=== PATIENT | female | born 1985 | race Caucasian/White ===

== ENCOUNTER 2020-01-15 19:02 | Emergency (ER) | payer OTHER ==
[~2020-01-15] VITALS: Ht 154.9 cm; Wt 60.2 kg
[2020-01-15 19:45] LABS: BASO # 0.1 10^3/uL (0.0-0.2); BASO % 0.7 % (0.0-1.0); EOS % 0.3 % (0.0-3.0); HEMATOCRIT 38.3 % (36.0-47.0); HEMOGLOBIN 12.8 g/dl (12.0-15.5); LYMPH # 2.9 10^3/uL (1.5-5.0); LYMPH % 31.2 % (24.0-44.0); MEAN CORPUSCULAR HEMOGLOBIN 29.3 pg (27.0-33.0); MEAN CORPUSCULAR HGB CONC 33.4 g/dl (32.0-36.5); MEAN CORPUSCULAR VOLUME 87.6 fl (80.0-96.0); MONO # 0.6 10^3/uL (0.0-0.8); MONO % 6.1 % (0.0-5.0); NEUTROPHILS # 5.7 10^3/uL (1.5-8.5); NEUTROPHILS % 61.5 % (36.0-66.0); PLATELET COUNT, AUTOMATED 301 10^3/uL (150-450); RED BLOOD COUNT 4.37 10^6/uL (4.00-5.40); WHITE BLOOD COUNT 9.2 10^3/uL (4.0-10.0)
[2020-01-15 20:12] LABS: BLOOD UREA NITROGEN 11 MG/DL (7-18); CALCIUM LEVEL 8.7 MG/DL (8.5-10.1); CARBON DIOXIDE LEVEL 25 MEQ/L (21-32); CHLORIDE LEVEL 106 MEQ/L (98-107); CREATININE FOR GFR 0.89 MG/DL (0.55-1.30); GLOMERULAR FILTRATION RATE > 60.0 (>60); GLUCOSE, FASTING 104 MG/DL (70-100); HCG, SERUM QUANTITATIVE 7 MIU/ML; POTASSIUM SERUM 3.4 MEQ/L (3.5-5.1); SODIUM LEVEL 139 MEQ/L (136-145)
--- NOTE | 2020-01-15 20:44 | REPVR ---
PROCEDURE INFORMATION: Exam: US First Trimester, Transabdominal Exam date and time: 01/15/2020 8:02 PM Age: 34 years old Clinical indication: Lmp or gestational age (in weeks): 12/03/2019; Other: Vaginal bleeding; ; Additional info: Vag bleeding, positive home preg test TECHNIQUE: Imaging protocol: Real-time transabdominal obstetrical ultrasound of the maternal pelvis and a first trimester , less than 14 weeks 0 days, with image documentation. COMPARISON: No relevant prior studies available. FINDINGS: Gestation: There is no intrauterine gestational sac. The gestational sac is generally seen at 5-6 weeks gestation. The patient has had vaginal bleeding and it is possible that this is a spontaneous . In this situation microscopic ectopic could not be absolutely excluded and recommend correlation with hCG levels and ankle follow-up. Uterus: The uterus measures 8.9 cm in length by 4.1 cm in thickness by 6.1 cm in transverse dimension. The endometrium is uniformly echogenic and measuring only 7 mm. Cervix: Unremarkable. Right adnexa: The right ovary measures 3 cm in length by 2.7 cm in thickness. There is vascular flow of the right ovary with no evidence of torsion. There is a 1.6 cm hemorrhagic cyst right ovary which may represent a corpus luteum. Left adnexa: Left ovary measures 2.2 cm in length by 1.8 cm in thickness and there is vascular flow of the left ovary with no evidence of torsion. Intraperitoneal space: There is no evidence of free fluid in the pelvis. Urinary bladder: There is only a very small amount of urine in the urinary bladder and therefore the urinary bladder cannot be evaluated. IMPRESSION: No evidence of intrauterine gestational sac. It is possible that this represents a spontaneous . Microscopic ectopic could not be excluded and recommend correlation with hCG levels and follow-up examinations. Electronically signed by: Mir Boss On 01/15/2020 20:44:32 PM
[2020-01-15] MEDS ORDERED: RHOGAM 300 MCG (1500 IU) INJ (J2790) IM ONE (21:15)
[2020-01-15] MEDS ORDERED: POTASSIUM CHLORIDE 10 MEQ SR TABLET PO ONE (21:45)
[2020-01-15 22:16] VITALS: BP 152/87
== END 2020-01-15 22:18 | disposition home or self-care (01) ==
LOC: M ED 19:02
DX: O03.9 Complete or unspecified spontaneous abortion without complication (principal); O02.1 Missed abortion; Z98.890 Other specified postprocedural states
CPT/HCPCS: 36415; 76801; 80048; 81001; 84702; 85025; 86901; 93976; 96372; 99283; J2790

== ENCOUNTER → 2020-01-17 | Outpatient (CLI) | payer OTHER | LOC: M LAB 17:04 | PROVIDERS: ATTEND Physician Assistant | DX: Z32.00 Encounter for pregnancy test, result unknown (principal) ==

== ENCOUNTER 2020-10-07 22:14 | Outpatient (CLI) | payer OTHER ==
[~2020-10-07] VITALS: Ht 154.9 cm; Wt 68.8 kg
[2020-10-07] MEDS ORDERED: HOME MED LIST COMPLETE! XX SCH (22:45)
[2020-10-07 22:46] VITALS: BP 134/81
[2020-10-07] MEDS ORDERED: PRENTAB9 PO (22:46)
[2020-10-08 00:39] VITALS: BP 108/55
[2020-10-08 00:50] LABS: HEMATOCRIT 37.6 % (36.0-47.0); MEAN CORPUSCULAR HEMOGLOBIN 31.8 pg (27.0-33.0); MEAN CORPUSCULAR HGB CONC 34.6 g/dl (32.0-36.5); MEAN CORPUSCULAR VOLUME 91.9 fl (80.0-96.0); PLATELET COUNT, AUTOMATED 168 10^3/uL (150-450); RED BLOOD COUNT 4.09 10^6/uL (4.00-5.40); WHITE BLOOD COUNT 11.2 10^3/uL (4.0-10.0)
[2020-10-08] MEDS ORDERED: ACETAMINOPHEN 500 MG TAB PO ONE (01:00)
[2020-10-08] MEDS ORDERED: ONDANSETRON 4MG/2ML VIAL IV PRN (01:00)
[2020-10-08 02:26] VITALS: BP 111/55
--- NOTE | 2020-10-08 02:31 | IPNPDOC ---
Obstetrical Progress Note Date of Service Oct 08, 2020 Subjective 34 yo @ 36+6 by 7wk us who presents with complaints of not feeling well overall and nausea and hip pain. she reports she feels hot at home and took a temp that was 100.2. she notes that she has not eating anything all day because she had not felt good. she denies any urinary symptoms. denies any vaginal bleeding or decreased movements. she is having some occasional contrac tions that are not painful. I obtained UA, CBC AMD COVID TEST Objective Vital Signs Date Time Temp Pulse Resp B/P (MAP) Pulse Ox O2 Delivery O2 Flow Rate FiO2 10/08/20 00:40 100.3 10/08/20 00:39 116 108/55 (72) 10/07/20 22:46 20 Room Air Assessment Heart Rate (FHR): 140 Variability: Moderate Accelerations: Positive Decelerations: None Heart Rate Tracing: Category I Tocometer Contractions: Yes Sterile Vaginal Examination Dilation: 3 cm Effacement (%): 70% Station: -2 Cervical Consistency: Medium Cervical Position: Middle Postion/Presentation: Cephalic presentation Assessment and Plan Status: Reassuring Group B Streptococcus: Negative Additional Comments 34 yo @ 36+6 by 7wk us who presents with complaints of not feeling well overall and nausea and hip pain. Labs obtained were wnl. benign exam with no CVA tenderness, fundal tenderness or suprapubic tenderness fetus initially tachy, but resolved with IV hydration Patient was treated with zofran and tylenol which helped, she was given crackers and juice which she was able to keep down. given strict return precautions f/u as previously scheduled. GENA MAI MD Oct 08, 2020 02:31
[2020-10-09] MEDS ORDERED: FERR325T81 PO (23:24)
[2020-10-09] MEDS ORDERED: VITA100T59 PO (23:24)
[2020-10-09] MEDS ORDERED: TUMS500C PO (23:24)
== END 2020-10-08 02:47 | disposition home or self-care (01) ==
LOC: M LDO 22:14
PROVIDERS: ATTEND Obstetrics & Gynecology
DX: O26.893 Other specified pregnancy related conditions, third trimester (principal); Z3A.36 36 weeks gestation of pregnancy; R11.0 Nausea; M25.552 Pain in left hip; M25.551 Pain in right hip; R10.9 Unspecified abdominal pain
CPT/HCPCS: 36415; 59025; 81001; 85027; 87086; 96365; 96366; G0378; G0463; J2405; U0002

== ENCOUNTER 2020-10-09 22:15 | Outpatient (CLI) | payer OTHER ==
[~2020-10-09] VITALS: Ht 154.9 cm; Wt 69.6 kg
[~2020-10-09 22:15] MED LIST: PRENTAB9 PO
[2020-10-09 22:37] VITALS: BP 120/72
[2020-10-09] MEDS ORDERED: ACETAMINOPHEN 500 MG TAB PO STA (22:43)
[2020-10-09] MEDS ORDERED: LR 1,000 ML IV ONE (23:00)
[2020-10-09 23:03] LABS: BASO % 0.3 % (0.0-1.0); EOS % 0.3 % (0.0-3.0); HEMATOCRIT 34.9 % (36.0-47.0); HEMOGLOBIN 12.2 g/dl (12.0-15.5); LYMPH # 1.5 10^3/uL (1.5-5.0); LYMPH % 14.9 % (24.0-44.0); MEAN CORPUSCULAR HEMOGLOBIN 31.4 pg (27.0-33.0); MEAN CORPUSCULAR VOLUME 89.9 fl (80.0-96.0); MONO # 0.7 10^3/uL (0.0-0.8); MONO % 6.8 % (2.0-8.0); NEUTROPHILS # 7.5 10^3/uL (1.5-8.5); NEUTROPHILS % 76.6 % (36.0-66.0); PLATELET COUNT, AUTOMATED 162 10^3/uL (150-450); RED BLOOD COUNT 3.88 10^6/uL (4.00-5.40); WHITE BLOOD COUNT 9.8 10^3/uL (4.0-10.0)
[2020-10-09 23:20] LABS: ALBUMIN 2.6 GM/DL (3.2-5.2); ALT/SGPT 30 U/L (12-78); BILIRUBIN,TOTAL 0.9 MG/DL (0.2-1.0); BLOOD UREA NITROGEN 6 MG/DL (7-18); CALCIUM LEVEL 8.1 MG/DL (8.5-10.1); CARBON DIOXIDE LEVEL 21 MEQ/L (21-32); CHLORIDE LEVEL 105 MEQ/L (98-107); CREATININE FOR GFR 0.61 MG/DL (0.55-1.30); GLOMERULAR FILTRATION RATE > 60.0 (>60); GLUCOSE, FASTING 111 MG/DL (70-100); POTASSIUM SERUM 3.7 MEQ/L (3.5-5.1); SODIUM LEVEL 134 MEQ/L (136-145); TOTAL PROTEIN 6.1 GM/DL (6.4-8.2)
[2020-10-09] MEDS ORDERED: FERR325T81 PO (23:24)
[2020-10-09] MEDS ORDERED: TUMS500C PO (23:24)
[2020-10-09] MEDS ORDERED: VITA100T59 PO (23:24)
[2020-10-10 00:14] LABS: APPEARANCE, URINE HAZY (CLEAR); BACTERIA, URINE AUTO NEGATIVE (NEGATIVE); BILIRUBIN, URINE AUTO NEGATIVE (NEGATIVE); BLOOD, URINE BLOOD NEGATIVE (NEGATIVE); CALCIUM OXALATE CRYSTALS SMALL; COLOR, URINE YELLOW (YELLOW); GLUCOSE, URINE (UA) AUTO NEGATIVE (NEGATIVE); KETONE, URINE AUTO 2+ mg/dL (NEGATIVE); LEUKOCYTE ESTERASE, URINE AUTO 1+ (NEGATIVE); MUCUS, URINE SMALL (NEGATIVE); NITRITE, URINE AUTO NEGATIVE (NEGATIVE); PROTEIN, URINE AUTO 1+ mg/dL (NEGATIVE); RBC, URINE AUTO 3 /HPF (0-3); SPECIFIC GRAVITY URINE AUTO 1.011 (1.002-1.035); SQUAMOUS EPITHELIAL CELL UR AU 10 /HPF (0-6); WBC, URINE AUTO 3 /HPF (0-3)
--- NOTE | 2020-10-10 01:08 | IPNPDOC ---
Obstetrical Progress Note Date of Service Oct 10, 2020 Subjective 35yo at 37w1d by 7w4d US with EDD9/6 presents to triage with symptoms of fevers and body aches. Pt presented with similar symptoms on Friday and was discharged home after prolonged monitoring and IV fluids. She states her symptoms are unchanged, and maybe slightly better than Friday, however she spiked another fever of 101.3 at home and was concerned. She states she has also had worsening reflux and several episodes of emesis since her symptoms began, but that she was able to keep down full meals today. Denies sore throat, ear pain, congestion, cough/wheeze, diarrhea or any additional cold/flu symptoms. Denies OB complaint. States she has occassional contractions but they are nonpainful. Denies LOF, VB or discharge. +GFM . Objective Vital Signs Date Time Temp Pulse Resp B/P (MAP) Pulse Ox O2 Delivery O2 Flow Rate FiO2 10/09/20 23:34 113 10/09/20 23:31 100.4 18 10/09/20 22:37 120/72 (88) 10/09/20 23:58: Urine Color YELLOW, Urine Appearance HAZY, Urine pH 6.0, Urine Specific [place] 1.011, Urine Protein 1+H, Urine Glucose (Auto)(UA) NEGATIVE, Urine Ketones (Auto) 2+H, Urine Blood NEGATIVE, Urine Nitrite NEGATIVE, Urine Bilirubin NEGATIVE, Urine Urobilinogen 2.0H, Urine Leukocyte Esterase (Auto) 1+H, Urine WBC (Auto) 3, Urine RBC (Auto) 3, Urine Hyaline Casts (Auto) 0, Urine Bacteria (Auto) NEGATIVE, Urine Squamous Epithelial Cells 10, Urine Calcium Oxalate Cryst (Auto) SMALL, Urine Mucus (Auto) SMALL, Urine Sperm (Auto) Microbiology 10/09/20 Respiratory Virus Panel (PCR) ([facility]) - Final, Complete Laboratory Tests 10/09/20 22:47 10/09/20 22:49 Assessment Heart Rate (FHR): 170 (improved to 150's after IV fluids) Variability: Moderate Accelerations: Positive Decelerations: None Heart Rate Tracing: Category II Tocometer Contractions: Yes Frequency: irregular Sterile Vaginal Examination Postion/Presentation: Cephalic presentation (by US) Assessment and Plan Additional Comments Pt evaluated with CBC, CMP, UA (culture pending) and respiratory panel. WBC is slightly improved from Sat. CMP is significant for mildly elevated ALT which may be as a result of her N/V. COVID again negative, as well as influenza and the remainder of the respiratory panel. Pt given tylenol and IV fluids with resolution of fever and maternal/ tachycardia. Repeat temp normal at 97.9. Bedside US also performed, subjectively normal fluid noted and in cephalic presentation. Reviewed findings with patient. Will plan for D/C home at this time with strict return precautions. Pt scheduled for follow up in clinic on Friday this week. Recommend repeating LFTs to trend mildly elevated level. MIKAYLA PADILLA M.D. Oct 10, 2020 00:54
== END 2020-10-10 01:00 | disposition home or self-care (01) ==
LOC: M LDO 22:15
PROVIDERS: ATTEND Obstetrics & Gynecology
DX: O26.893 Other specified pregnancy related conditions, third trimester (principal); Z3A.37 37 weeks gestation of pregnancy; R50.9 Fever, unspecified; Z20.822 Contact with and (suspected) exposure to COVID-19
CPT/HCPCS: 36415; 59025; 76815; 80053; 81001; 85025; 87086; 87798; G0378; G0463

== ENCOUNTER 2020-10-24 05:22 | Inpatient (IN) | payer OTHER ==
[~2020-10-24] VITALS: Ht 154.9 cm; Wt 68.6 kg
[2020-10-24] VITALS (14 sets, daily range): BP systolic 107–133; BP diastolic 53–78
[~2020-10-24 05:22] MED LIST changes: +FERR325T81 PO; +TUMS500C PO; +VITA100T59 PO
[2020-10-24] MEDS ORDERED: BICITRA 30ML SOLN UDC PO ONE (05:30)
[2020-10-24] MEDS ORDERED: LR 1,000 ML IV ONE (05:30)
[2020-10-24] MEDS ORDERED: ACETAMINOPHEN 650 MG SUPP PR ONE (05:30)
[2020-10-24] MEDS ORDERED: AZITHROMYCIN INJ 500 MG, VIAL MATE ADAPTER 1 EACH in NS 250 ML IV ONE (05:30)
[2020-10-24] MEDS ORDERED: ceFAZolin SOD 2 GM in IV 1 EA IV ONE (05:50)
[2020-10-24] MEDS ORDERED: HOME MED LIST COMPLETE! XX SCH (05:50)
[2020-10-24] MEDS ORDERED: BUPIVACAINE HCL 0.25% 10ML VIAL SC ONE (06:00)
[2020-10-24 06:30] LABS: HEMATOCRIT 37.5 % (36.0-47.0); MEAN CORPUSCULAR HEMOGLOBIN 31.5 pg (27.0-33.0); MEAN CORPUSCULAR HGB CONC 34.7 g/dl (32.0-36.5); MEAN CORPUSCULAR VOLUME 90.8 fl (80.0-96.0); PLATELET COUNT, AUTOMATED 265 10^3/uL (150-450); RED BLOOD COUNT 4.13 10^6/uL (4.00-5.40); WHITE BLOOD COUNT 11.4 10^3/uL (4.0-10.0)
[2020-10-24] MEDS ORDERED: LR 1,000 ML IV SCH ×3 (06:30→09:30)
[2020-10-24] MEDS ORDERED: MORPHINE PRES-FREE INJ 10 MG/10 ML VIAL (J2274) As Ordered ONE (07:15)
[2020-10-24] MEDS ORDERED: dexameTHASONE 4 MG/ML 1ML VIAL (J1100 PER 1MG) As Ordered ONE (07:17)
[2020-10-24] MEDS ORDERED: ONDANSETRON 4MG/2ML VIAL As Ordered ONE (07:17)
[2020-10-24] MEDS ORDERED: NALBUPHINE HCL 10 MG/ML AMP (J2300) IV PRN (07:48)
[2020-10-24] MEDS ORDERED: diphenhydrAMINE 50MG/ML VIAL (J1200) IV PRN (07:48)
[2020-10-24] MEDS ORDERED: NALOXONE INJ 0.4MG/1ML VIAL (J2310 PER 1MG) IV PRN ×2 (07:48)
[2020-10-24] MEDS ORDERED: METOCLOPRAMIDE INJ 10MG/2ML VIAL (J2765 PER 1) IV PRN ×2 (07:48→09:30)
[2020-10-24] MEDS ORDERED: ONDANSETRON 4MG/2ML VIAL IV PRN ×2 (07:48→09:30)
[2020-10-24] MEDS ORDERED: PHENYLephrine 500MCG 5ML (100MCG/ML) SYRINGE As Ordered ONE (08:19)
[2020-10-24] MEDS ORDERED: KETOROLAC 60MG 2ML VIAL As Ordered ONE (08:19)
[2020-10-24] MEDS ORDERED: ePHEDrine SULFATE 25 MG/5 ML(5MG/ML) SYRINGE As Ordered ONE (08:19)
[2020-10-24] MEDS ORDERED: fentaNYL 100 MCG/2 ML INJECTION (J3010) As Ordered ONE (08:32)
[2020-10-24 08:33] LABS: CORD GAS ABE V -0.8; CORD GAS HCO3 V 23.8 MEQ/L; CORD GAS O2 SAT V 54.8 %; CORD GAS PCO2 V 39.2 mmHg; CORD GAS PH V 7.401 UNITS; CORD GAS SBC V 22.8 MEQ/L
[2020-10-24 08:35] LABS: CORD GAS ABE A -4.8; CORD GAS O2 SAT A 74.5 %; CORD GAS PCO2 A 41.5 mmHg; CORD GAS PH A 7.322 UNITS; CORD GAS PO2 A 36.7 mmHg; CORD GAS TCO2 A 22.3 MEQ/L
[2020-10-24] MEDS ORDERED: MEASLES,MUMPS,RUBELLA VACCINE INJ (MMR-II) (90707) SC SCH (09:10)
[2020-10-24] MEDS ORDERED: ACETAMINOPHEN TAB 650MG DOSE (2X325MG) PO PRN (09:10)
[2020-10-24] MEDS ORDERED: OXYTOCIN DRIP 30 UNITS in IV 1 EA IV ONE (09:10)
[2020-10-24] MEDS ORDERED: PERCOCET 5MG/325MG TAB PO PRN ×2 (09:10→09:30)
[2020-10-24] MEDS ORDERED: METHYLERGONOVINE MALEATE 0.2 MG TAB PO PRN (09:10)
[2020-10-24] MEDS ORDERED: ACETAMINOPHEN 500 MG TAB PO PRN (09:10)
[2020-10-24] MEDS ORDERED: ANUSOL HC CREAM 30GM TOP PRN (09:10)
[2020-10-24] MEDS ORDERED: DOCUSATE SODIUM 100MG CAPSULE PO PRN (09:10)
[2020-10-24] MEDS ORDERED: RHOGAM 300 MCG (1500 IU) INJ (J2790) IM SCH (09:10)
[2020-10-24] MEDS ORDERED: SIMETHICONE 80MG CHEW TAB PO PRN (09:10)
[2020-10-24] MEDS ORDERED: MOM 30ML SUSPENSION UDC PO PRN (09:10)
[2020-10-24] MEDS ORDERED: OXYTOCIN 30 UNITS IN 0.9% NaCl 500ML IV BAG (J2590) As Ordered ONE (09:21)
[2020-10-24] MEDS ORDERED: fentaNYL 100 MCG/2 ML INJECTION (J3010) IV PRN (09:30)
--- NOTE | 2020-10-24 10:55 | RO ---
OPERATIVE NOTE DATE OF OPERATION: 10/24/2020 PREOPERATIVE DIAGNOSIS: Repeat . POSTOPERATIVE DIAGNOSIS: Repeat . PROCEDURE: repeat SURGEON: Aidan Sy MD. DATA PROCESSING CONSULTANT: Dr. Schulte for assistance in retraction, extraction, and visualization without which the procedure could not be completed. ANESTHESIA: Spinal plus local anesthetic for intraperitoneal procedures. ESTIMATED BLOOD LOSS: 400 mL. DESCRIPTION OF PROCEDURE: After adequate time out, prepped and draped in supine position. Eastman catheter in the bladder draining clear urine. Acetaminophen suppository 1300 mg per rectum. Antibiotics appropriately in place. Sequentials in place. Pfannenstiel incision was made two fingerbreadths above the symphysis pubis passing through abdominal layers securing hemostasis. Opening the peritoneal cavity, we noticed a very thin lower uterine segment and a very high bladder anteriorly. The bladder was reflected well down anteriorly. A Mobius was placed. Very thin lower segment, a low transverse incision. ARM draining meconium stained fluid. We delivered a live female weighing 6 pounds 15 ounces, 3160 grams. Apgars of 9 and 9 at one and five minutes respectively. Cord around the neck one, around the body one, and around the ankle. The baby had meconium in its oropharynx and was suctioned out at the operative site. Arterial pH 7.32, base excess -4.8, venous pH 7.40, base excess -0.8. The placenta delivered spontaneously thereafter. Three vessel cord. Membranes and tissues intact. The patient has donated her placenta. The uterus was swept clean and then the lower segment was oversewn in the usual fashion in two layers imbricating the second layer. Instrument and pad count correct. Both ovaries and tubes appeared to be normal. The Mobius was removed. The abdomen was closed with a running stitch for the peritoneum, same for the fascia, interrupted for the subcu, and Dexon to the skin. Marcaine 0.25% 10 mL to the skin site, and a Mepore dressing was placed. Patient and baby tolerated the procedure well. cc: Mima Aguilar OB PREETHI
[2020-10-24] MEDS: KETOROLAC 30 MG/ML 1ML VIAL IV SCH ×2 (16:09→20:24)
[2020-10-25 02:00] VITALS: BP 106/55
[2020-10-25] MEDS: KETOROLAC 30 MG/ML 1ML VIAL IV SCH (02:01)
[2020-10-25 06:10] VITALS: BP 109/55
[2020-10-25 07:03] LABS: HEMATOCRIT 31.6 % (36.0-47.0); MEAN CORPUSCULAR HEMOGLOBIN 31.1 pg (27.0-33.0); MEAN CORPUSCULAR HGB CONC 33.2 g/dl (32.0-36.5); MEAN CORPUSCULAR VOLUME 93.5 fl (80.0-96.0); PLATELET COUNT, AUTOMATED 212 10^3/uL (150-450); RED BLOOD COUNT 3.38 10^6/uL (4.00-5.40); WHITE BLOOD COUNT 10.6 10^3/uL (4.0-10.0)
[2020-10-25 07:10] LABS: HEMOGLOBIN 10.5 g/dl (12.0-15.5)
[2020-10-25] MEDS: PRENATAL VITAMINS CHEWABLE TABLET PO SCH (08:18)
--- NOTE | 2020-10-25 09:39 | IPN ---
PROGRESS NOTE DATE: 10/25/2020 POSTOP AND DAY #1 SUBJECTIVE: This lady is a 35-year-old 3 now para 2, had a repeat section, livebirth female infant, 6 pounds, 15 ounces, 3160 grams, Apgars 9 and 9 at 1 and 5 minutes respectively. Arterial pH 7.32, base excess -4.8, venous pH 7.40, base excess -0.8. On her first day we discussed phlebitis, cystitis, mastitis, endometritis and cellulitis, diet, exercise, pain management, perineal, breast and wound care. Her admitting hemoglobin was 13.0, hematocrit 37.5, platelets 265,000 day hemoglobin 10.5 and hematocrit 31.6, platelets are 212,000. OBJECTIVE: Her vital signs this morning: Her blood pressure is 109/55, respirations 18, pulse 88, temperature is 96.2. The rest of the examination is unremarkable. Normocephalic, atraumatic. Neck with full range of motion. Pupils equal and reactive to light. Distal pulses are symmetric. No evidence of DVT, PE or superficial phlebitis. Chest is clear bilaterally to bases. No wheezes or rhonchi. No CVA tenderness. Abdomen is soft, four quadrant bowel sounds are noted. The incision is clean and dry. The uterus is two below, lochia is moderate. No rashes, lesions or pruritus. No arthralgias or myalgias. No complaint of joint pain. No complaint of cough, wheeze, shortness of breath or dyspnea on exertion. No nausea, vomiting, diarrhea or constipation. She is passing gas and voiding. She is presenting breast-feeding and doing well. PLAN: For discharge tomorrow, fiber picker medications at [facility], two week incision check, six week check. All questions are answered, a 20 minute discussion. cc: [facility]
[2020-10-25 10:00] VITALS: BP 103/58
[2020-10-25] MEDS ORDERED: IBUPROFEN 600MG TAB PO PRN (11:00)
[2020-10-25 14:00] VITALS: BP 114/61
[2020-10-25] MEDS: PERCOCET 5MG/325MG TAB PO PRN (17:57)
[2020-10-25 18:00] VITALS: BP 109/56
[2020-10-25 22:00] VITALS: BP 109/66
[2020-10-26] MEDS: PERCOCET 5MG/325MG TAB PO PRN ×2 (01:55→08:57)
[2020-10-26 02:00] VITALS: BP 141/68
[2020-10-26 06:00] VITALS: BP 122/59
[2020-10-26] MEDS ORDERED: PERCOCET PO (07:51)
[2020-10-26] MEDS ORDERED: IBUP-1022 PO (07:51)
--- NOTE | 2020-10-26 07:54 | DS.PDOC ---
Discharge Summary General Date of Admission Oct 24, 2020 at 05:22 Date of Discharge Oct 26, 2020 Discharge Summary HOSPITAL COURSE: Ms. Dunn is a 35 yo G2 now P2 who underwent an uncomplicated, scheduled RLTCS on 24Oct2020 due to a history of a prior c section. Her postoperative course was uncomplicated. On her day of discharge she met all appropriate discharge criteria. She was ambulating, voiding, tolerating a regular diet, passing gas, had minimal lochia, and her pain was well controlled with PO pain medications. DISCHARGE MEDICATIONS: Please see below. ALLERGIES: Please see below. PHYSICAL EXAMINATION ON DISCHARGE: VITAL SIGNS: Please see below. GENERAL: Sitting up in bed, AAOX3, NAD ABDOMINAL EXAMINATION: Soft. Fundus firm at U-1. No fundal tenderness. Optifoam dressing in place over incision. No strikethrough. Minimal tenderness to palpation. EXTREMITIES: trace edema PSYCHIATRIC EXAMINATION: Affect appropriate ACTIVITY: Pelvic rest for 6 weeks. No heavy lifting for 6 weeks. DIET: Regular DISCHARGE PLAN: Discharge home DISPOSITION: Discharge home on 26Oct2020. DISCHARGE INSTRUCTIONS: 1. No heavy lifting for 6 weeks. Pelvic rest for 6 weeks. 2. tire center supervisor medication. ITEMS TO FOLLOWUP ON ON OUTPATIENT: 1. Incision check in the office in 2 weeks DISCHARGE CONDITION: Stable. TIME SPENT ON DISCHARGE: 20 minutes. Vital Signs/I&Os Vital Signs Date Time Temp Pulse Resp B/P (MAP) Pulse Ox O2 Delivery O2 Flow Rate FiO2 10/26/20 06:00 98.7 61 18 122/59 (80) 96 Room Air I&O- Last 24 Hours up to 6 AM 10/26/20 06:00 Intake Total 240 ml Balance 240 ml Discharge Medications Scheduled No.137/Iron/Folic Acd ( Vitamin Tablet) 1 Each Tablet, 1 TAB PO DAILY, (Reported) Scheduled PRN Ibuprofen (Ibuprofen) 600 Mg Tablet, 600 MG PO Q6HP PRN for PAIN LEVEL 1-5 Oxycodone/Acetaminophen (Oxycodone-Acetaminophen 5-325) 1 Each Tablet, 1 TAB PO Q4H PRN for MODERATE PAIN (PS 5-7) Allergies Coded Allergies: No Known Allergies (Unverified , 01/15/20) AJ CHAMBERS DO Oct 26, 2020 07:54
[2020-10-26] MEDS: PRENATAL VITAMINS CHEWABLE TABLET PO SCH (08:58)
== END 2020-10-26 12:00 | disposition home or self-care (01) | DRG 773 ==
LOC: M LDI 05:22 → M OBS 10:30
PROVIDERS: ADMIT Obstetrics & Gynecology; ATTEND Obstetrics & Gynecology
PROC: 10D00Z1 Extraction of Products of Conception, Low, Open Approach (ICD-10-PCS; principal; 2020-10-24 07:30)
DX: O34.211 Maternal care for low transverse scar from previous cesarean delivery (principal); O77.0 Labor and delivery complicated by meconium in amniotic fluid; O69.81X0 Labor and delivery complicated by cord around neck, without compression, not applicable or unspecified; O69.82X0 Labor and delivery complicated by other cord entanglement, without compression, not applicable or unspecified; O94 Sequelae of complication of pregnancy, childbirth, and the puerperium; Z37.0 Single live birth; Z3A.39 39 weeks gestation of pregnancy